=== PATIENT | female | born 1990 | race Hispanic/Latino ===

== ENCOUNTER 2017-08-21 21:41 | Emergency (ER) | payer OTHER ==
--- NOTE | 2017-08-21 23:46 | ER ---
Nurse's Notes [facility] Name: Anila Hines Age: 27 yrs Sex: Female : 1990 Arrival Date: 08/21/2017 Time: 21:43 Bed 17 Private MD: Diagnosis: Contusion of left elbow Presentation: 08/21 21:55 Presenting complaint: Patient states: I was at work and stripped over a box and hit my tl1 left elbow on a metal shelf and it is swollen. Transition of care: patient was not received from another setting of care. Onset of symptoms was August 21, 2017. Care prior to arrival: None. 21:55 Method Of Arrival: Ambulatory tl1 21:55 Acuity: DALJIT 4 tl1 Triage Assessment: 08/22 00:21 Pain: Pain currently is 0 out of 10 on a pain scale. 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 - Social history:: Smoking status: Patient/guardian denies using tobacco, never smoked. - Family history:: not pertinent. Screenin:51 Abuse screen: Denies threats or abuse. Denies injuries from another. Nutritional bp screening: No deficits noted. Tuberculosis screening: No symptoms or risk factors identified. Fall Risk Fall in past 12 months (25 points). No secondary diagnosis (0 pts). No IV (0 pts). Ambulatory Aid- None/Bed Rest/Nurse Assist (0 pts). Gait- Normal/Bed Rest/Wheelchair (0 pts) Mental Status- Oriented to own ability (0 pts). Total Merino Fall Scale indicates Low Risk Score (25-44 pts). Fall prevention measures have been instituted. Side Rails Up X 2 Family Present and informed to notify staff if they need to leave bedside As available Patient and Family Educated on Fall Prevention Program and strategies. Assessment: 22:49 General: Appears in no apparent distress. comfortable, obese. General: Behavior is bp calm, cooperative, appropriate for age. Pain: Complains of pain in left elbow. Neuro: Level of Consciousness is awake, alert, obeys commands, Oriented to person, place, time, situation, Appropriate for age. Cardiovascular: No deficits noted. Respiratory: No deficits noted. GI: No signs and/or symptoms were reported involving the gastrointestinal system. : No signs and/or symptoms were reported regarding the genitourinary system. EENT: No signs and/or symptoms were reported regarding the EENT system. Derm: No deficits noted. Musculoskeletal: Circulation, motion, and sensation intact. Range of motion: intact in all extremities. 08/22 00:14 Reassessment: PT D/C HOME WITH FAMILY, DX WITH ELBOW CONTUSION AND OLECRANON BURSITIS. bp Vital Signs: 08/21 21:57 BP 157 / 105; Pulse 79; Resp 16; Temp 99.4; Pulse Ox 100% ; Weight 104.33 kg; Height 5 tl1 ft. 5 in. (165.10 cm); Pain 4/10; 08/22 00:00 BP 161 / 95; Pulse 75; Resp 16; Pulse Ox 100% ; bp 08/21 21:57 Body Mass Index 38.27 (104.33 kg, 165.10 cm) tl1 ED Course: 08/21 21:43 Patient arrived in ED. es 21:56 Triage completed. tl1 21:59 Arm band placed on right wrist. tl1 22:46 X-ray completed. Portable x-ray completed in exam room. Patient tolerated procedure kc2 well. 22:48 Garland Nagy, RN is Primary Nurse. bp 22:49 Elbow Left 3 View XRAY Sent. bp 22:51 Patient has correct armband on for positive identification. Bed in low position. Call bp light in reach. Side rails up X2. Adult w/ patient. 23:02 Meet Pizano MD is Attending Physician. ilnda 23:45 Jalen Peña MD is Referral Physician. linda 08/22 00:00 Patient did not have IV access during this emergency room visit. bp 00:21 No provider procedures requiring assistance completed. bp Administered Medications: 08/21 23:55 Drug: Motrin 600 mg Route: PO; tl1 23:59 Follow up: Response: No adverse reaction; Medication administered at discharge. bp 23:56 Drug: [place] (7.5 mg-325 mg) 1 tabs Route: PO; tl1 23:59 Follow up: Response: Medication administered at discharge. bp 23:59 Drug: Neosporin Ointment 1 application Route: Topical; Site: affected area; bp Outcome: 23:46 Discharge ordered by MD. mckeon 08/22 00:00 Discharged to home ambulatory, with family. bp Condition: stable Discharge instructions given to patient, family, Instructed on discharge instructions, follow up and referral plans. medication usage. 00:29 Patient left the ED. bp Signatures: Meet Pizano MD MD cha Salyer, Edna es Lasagna, Tonya, RN RN tl1 Andie Gregg kc2 Garland Nagy, RN RN bp
--- NOTE | 2017-08-21 23:46 | EDPHYS ---
Physician Documentation [facility] Name: Anila Hines Age: 27 yrs Sex: Female : 1990 Arrival Date: 08/21/2017 Time: 21:43 Bed 17 Private MD: ED Physician Meet Pizano HPI: 08/21 23:43 This 27 yrs old Female presents to ER via Ambulatory with complaints of Elbow linda Injury. 23:43 The patient or guardian complains of decreased range of motion, pain, swelling, linda tenderness. The complaints affect the left elbow. Context: The problem was sustained at work. Onset: The symptoms/episode began/occurred just prior to arrival. Treatment prior to arrival includes: no previous treatment. Modifying factors: The symptoms are alleviated by remaining still, the symptoms are aggravated by movement, bending arm. Associated signs and symptoms: The patient has no apparent associated signs or symptoms. The patient has not experienced similar symptoms in the past. 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 - Social history:: Smoking status: Patient/guardian denies using tobacco, never smoked. - Family history:: not pertinent. ROS: 23:43 Constitutional: Negative for fever, chills, and weight loss, Eyes: Negative for injury, linda pain, redness, and discharge, ENT: Negative for injury, pain, and discharge, Neck: Negative for injury, pain, and swelling, Cardiovascular: Negative for chest pain, palpitations, and edema, Respiratory: Negative for shortness of breath, cough, wheezing, and pleuritic chest pain, Abdomen/GI: Negative for abdominal pain, nausea, vomiting, diarrhea, and constipation, Back: Negative for injury and pain, : Negative for injury, bleeding, discharge, and swelling, Skin: Negative for injury, rash, and discoloration, Neuro: Negative for headache, weakness, numbness, tingling, and seizure, Psych: Negative for depression, anxiety, suicide ideation, homicidal ideation, and hallucinations, Allergy/Immunology: Negative for hives, rash, and allergies, Endocrine: Negative for neck swelling, polydipsia, polyuria, polyphagia, and marked weight changes, Hematologic/Lymphatic: Negative for swollen nodes, abnormal bleeding, and unusual bruising. 23:43 MS/extremity: Positive for decreased range of motion, pain, tenderness, of the left elbow. Exam: 23:43 Constitutional: This is a well developed, well nourished patient who is awake, alert, linda and in no acute distress. Head/Face: Normocephalic, atraumatic. Eyes: Pupils equal round and reactive to light, extra-ocular motions intact. Lids and lashes normal. Conjunctiva and sclera are non-icteric and not injected. Cornea within normal limits. Periorbital areas with no swelling, redness, or edema. ENT: Nares patent. No nasal discharge, no septal abnormalities noted. Tympanic membranes are normal and external auditory canals are clear. Oropharynx with no redness, swelling, or masses, exudates, or evidence of obstruction, uvula midline. Mucous membranes moist. Neck: Trachea midline, no thyromegaly or masses palpated, and no cervical lymphadenopathy. Supple, full range of motion without nuchal rigidity, or vertebral point tenderness. No Meningismus. Chest/axilla: Normal chest wall appearance and motion. Nontender with no deformity. No lesions are appreciated. Cardiovascular: Regular rate and rhythm with a normal S1 and S2. No gallops, murmurs, or rubs. Normal PMI, no JVD. No pulse deficits. Respiratory: Lungs have equal breath sounds bilaterally, clear to auscultation and percussion. No rales, rhonchi or wheezes noted. No increased work of breathing, no retractions or nasal flaring. Abdomen/GI: Soft, non-tender, with normal bowel sounds. No distension or tympany. No guarding or rebound. No evidence of tenderness throughout. Back: No spinal tenderness. No costovertebral tenderness. Full range of motion. Skin: Warm, dry with normal turgor. Normal color with no rashes, no lesions, and no evidence of cellulitis. Neuro: Awake and alert, GCS 15, oriented to person, place, time, and situation. Cranial nerves II-XII grossly intact. Motor strength 5/5 in all extremities. Sensory grossly intact. Cerebellar exam normal. Normal gait. Psych: Awake, alert, with orientation to person, place and time. Behavior, mood, and affect are within normal limits. 23:43 Musculoskeletal/extremity: ROM: full active range of motion, full passive range of motion, Circulation is intact in all extremities. Sensation intact. Compartment Syndrome exam of affected extremity: is normal. DVT Exam: negative Homans' sign noted on exam, no appreciated bluish discoloration, no erythema, no increased warmth, pain, swelling, tenderness. Vital Signs: 21:57 BP 157 / 105; Pulse 79; Resp 16; Temp 99.4; Pulse Ox 100% ; Weight 104.33 kg; Height 5 tl1 ft. 5 in. (165.10 cm); Pain 09/11; 08/22 00:00 BP 161 / 95; Pulse 75; Resp 16; Pulse Ox 100% ; bp 08/21 21:57 Body Mass Index 38.27 (104.33 kg, 165.10 cm) tl1 MDM: 08/21 23:02 Patient medically screened. [facility] 23:45 Data reviewed: vital signs, nurses notes, lab test result(s), radiologic studies, plain linda films. 08/22 00:02 Order name: Urine Dipstick--Ancillary (enter results) [facility] 08/22 00:02 Order name: Urine --Ancillary (enter results) em 08/21 22:00 Order name: Elbow Left 3 View XRAY tl1 08/22 00:10 Order name: Urine --Ancillary [facility] 08/22 00:10 Order name: Urine Dipstick-Ancillary [facility] 08/21 23:43 Order name: Urine Dipstick-Ancillary (obtain specimen); Complete Time: 23:59 [facility] 08/21 23:43 Order name: Urine Test (obtain specimen); Complete Time: 23:59 [facility] 08/21 23:43 Order name: Ice pack; Complete Time: 23:53 [facility] 08/21 23:43 Order name: Sling; Complete Time: 23:53 [facility] Administered Medications: 23:55 Drug: Motrin 600 mg Route: PO; tl1 23:59 Follow up: Response: No adverse reaction; Medication administered at discharge. bp 23:56 Drug: [place] (7.5 mg-325 mg) 1 tabs Route: PO; tl1 23:59 Follow up: Response: Medication administered at discharge. bp 23:59 Drug: Neosporin Ointment 1 application Route: Topical; Site: affected area; bp Disposition: 08/21/17 23:46 Discharged to Home. Impression: Contusion of left elbow. - Condition is Stable. - Discharge Instructions: Elbow Contusion, Olecranon Bursitis, Elbow Contusion, [id number]. - Prescriptions for Ibuprofen 600 mg Oral Tablet - take 1 tablet by ORAL route every 8 hours As needed take with food; 21 tablet. Tylenol- Codeine #3 300-30 mg Oral Tablet - take 2 tablets by ORAL route every 6 hours As needed; 26 tablet. - Medication Reconciliation Form, Thank You Letter, Antibiotic Education, Prescription Opioid Use, Work release form form. - Follow up: Jalen Peña MD; When: 2 - 3 days; Reason: Recheck today's complaints, Re-evaluation by your physician. - Problem is new. - Symptoms have improved. Signatures: Dispatcher [employer] EDMeet Perez MD MD cha Lasagna, Tonya, RN RN tl1 Garland Nagy RN RN bp
[2017-08-22 00:10] LABS: Urine Blood TRACE (NEG); Urine Glucose NEGATIVE (NEG); Urine Protein NEGATIVE (NEG); Urine Specific Gravity 1.025 (1.005-1.030)
[2017-08-22] MEDS ORDERED: HYDROCODONE/APAP 7.5/325 MG TAB ONE (00:11)
[2017-08-22] MEDS ORDERED: IBUPROFEN 200 MG TAB PO ONE (00:11)
[2017-08-22 00:51] VITALS: TEMP 99.4; O2SAT 100
[2017-08-22 00:53] VITALS: BP 161/95
--- NOTE | 2017-08-22 09:34 | RAD REPORT ---
EXAM DESCRIPTION: RAD - Elbow Left 3 View - 08/21/2017 10:48 pm CLINICAL HISTORY: Left elbow pain status post trauma FINDINGS: No fracture or dislocation is seen.
== END 2017-08-22 00:29 | disposition home or self-care (01) ==
LOC: ER 21:41
DX: S50.02XA Contusion of left elbow, initial encounter (principal); X58.XXXA Exposure to other specified factors, initial encounter; Y93.9 Activity, unspecified; Y92.89 Other specified places as the place of occurrence of the external cause; Y99.0 Civilian activity done for income or pay; Z91.010 Allergy to peanuts
CPT/HCPCS: 81003; 81025; 99283

== ENCOUNTER 2019-04-08 16:47 | Observation (INO) | payer OTHER ==
[2019-04-08 19:00] LABS: Urine Blood 2+ (NEG); Urine Glucose NEGATIVE (NEG); Urine Protein NEGATIVE (NEG); Urine Specific Gravity 1.025 (1.005-1.030)
[2019-04-08 19:29] LABS: Urine Bacteria 20-50 /HPF (<20); Urine Culture Reflex Order NOT NEEDED; Urine Mucus SLIGHT /HPF (NONE SEEN)
--- NOTE | 2019-04-08 19:37 | RAD REPORT ---
EXAM DESCRIPTION: CT - Stone Protocol - 04/08/2019 7:14 pm CLINICAL HISTORY: Lower quadrant pain COMPARISON: None. TECHNIQUE: Axial 5 mm thick images were obtained without oral or IV contrast. The jbxow-dn-coat span s the entirety of the system including uppermost abdomen and lung bases. All CT scans are performed using dose optimization technique as appropriate and may include automated exposure control or mA/KV adjustment according to patient size. FINDINGS: No hydronephrosis is present and no obstructing ureteral calculi. No suspicious renal mass es. Isodense masses and pyelonephritis are not excluded on a stone protocol CT scan. No urinary bladd er suspicious finding. No significant adrenal finding. Uterus and ovaries show no suspicious findings . Imaged portions of the liver, spleen and pancreas show no suspicious findings on non-contrast imaging . No gallbladder or biliary tree abnormality identified. The appendix is abnormal. The appendix is 13 mm in diameter with stranding in the periappendiceal fat . Several small reactive lymph nodes are seen in the right lower quadrant. The appendix is partially retrocecal. No abscess or free air. No hernia, mass or bulky lymphadenopathy noted. No free air, free fluid or pneumatosis. No significant bony abnormality. IMPRESSION: Acute appendicitis. The appendix is partially retrocecal in position. Several small reactive lymph nodes are present in the right lower quadrant. No abscess or other compl icating factor. No acute finding. Isodense masses and pyelonephritis are not excluded.
[2019-04-08] MEDS ORDERED: METRONIDAZOLE 500mg IVPB 0 MG/0 ML BAG IV ONE (19:50)
[2019-04-08] MEDS ORDERED: CEFTRIAXONE/SWI 1gm 1 GM/10 ML SYR ONE (19:50)
[2019-04-08] MEDS ORDERED: NA CHLORIDE 0.9% 1,000 ML ONE (19:50)
[2019-04-08] MEDS ORDERED: METRONIDAZOLE 500mg IVPB 500 MG/100 ML BAG IV ONE (19:51)
[2019-04-08 20:21] LABS: Absolute Lymphocytes (CBC) 2.4 K/uL (0.7-4.9); Basophils % 0.5 % (0-1.3); Hematocrit 37.5 % (36.0-45.0); Lymphocytes % 27.8 % (15.3-44.8); MPV 7.1 fL (7.6-11.3); RBC Red Blood Cell Count 4.38 M/uL (3.86-4.86)
[2019-04-08 20:24] LABS: BUN Blood Urea Nitrogen 10 mg/dL (7-18); Bicarbonate 30 mmol/L (21-32); Glucose Level 91 mg/dL (74-106); Sodium Level 140 mmol/L (136-145)
--- NOTE | 2019-04-08 21:21 | EDPHYS ---
Physician Documentation [facility] Name: Anila Hines Age: 28 yrs Sex: Female : 1990 Arrival Date: 04/08/2019 Time: 16:55 Bed 26 Private MD: ED Physician Marlon Womack HPI: 04/08 19:57 This 28 yrs old Female presents to ER via Ambulatory with complaints of snw Abdominal Pain. 19:57 The patient presents with abdominal pain right lower quadrant. Onset: The snw symptoms/episode began/occurred suddenly, 2 day(s) ago, and became persistent. The symptoms do not radiate. Associated signs and symptoms: none. The symptoms are described as steady. Severity of pain: At its worst the pain was moderate. The patient has not experienced similar symptoms in the past. [facility]. 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 - Social history:: Smoking status: Patient/guardian denies using tobacco. - Ebola Screening: : No symptoms or risks identified at this time. ROS: 19:58 Constitutional: Negative for fever, chills, and weight loss, Eyes: Negative for injury, snw pain, redness, and discharge, ENT: Negative for injury, pain, and discharge, Neck: Negative for injury, pain, and swelling, Cardiovascular: Negative for chest pain, palpitations, and edema, Respiratory: Negative for shortness of breath, cough, wheezing, and pleuritic chest pain, Back: Negative for injury and pain, : Negative for injury, bleeding, discharge, and swelling, MS/Extremity: Negative for injury and deformity, Skin: Negative for injury, rash, and discoloration, Neuro: Negative for headache, weakness, numbness, tingling, and seizure, Psych: Negative for depression, anxiety, suicide ideation, homicidal ideation, and hallucinations. 19:58 Abdomen/GI: Positive for abdominal pain, of the right lower quadrant. Exam: 19:59 Constitutional: This is a well developed, well nourished patient who is awake, alert, snw and in no acute distress. Head/Face: Normocephalic, atraumatic. Eyes: Pupils equal round and reactive to light, extra-ocular motions intact. Lids and lashes normal. Conjunctiva and sclera are non-icteric and not injected. Cornea within normal limits. Periorbital areas with no swelling, redness, or edema. ENT: Nares patent. No nasal discharge, no septal abnormalities noted. Tympanic membranes are normal and external auditory canals are clear. Oropharynx with no redness, swelling, or masses, exudates, or evidence of obstruction, uvula midline. Mucous membranes moist. Neck: Trachea midline, no thyromegaly or masses palpated, and no cervical lymphadenopathy. Supple, full range of motion without nuchal rigidity, or vertebral point tenderness. No Meningismus. Chest/axilla: Normal chest wall appearance and motion. Nontender with no deformity. No lesions are appreciated. Cardiovascular: Regular rate and rhythm with a normal S1 and S2. No gallops, murmurs, or rubs. Normal PMI, no JVD. No pulse deficits. Respiratory: Lungs have equal breath sounds bilaterally, clear to auscultation and percussion. No rales, rhonchi or wheezes noted. No increased work of breathing, no retractions or nasal flaring. Back: No spinal tenderness. No costovertebral tenderness. Full range of motion. Skin: Warm, dry with normal turgor. Normal color with no rashes, no lesions, and no evidence of cellulitis. MS/ Extremity: Pulses equal, no cyanosis. Neurovascular intact. Full, normal range of motion. Neuro: Awake and alert, GCS 15, oriented to person, place, time, and situation. Cranial nerves II-XII grossly intact. Motor strength 5/5 in all extremities. Sensory grossly intact. Cerebellar exam normal. Normal gait. Psych: Awake, alert, with orientation to person, place and time. Behavior, mood, and affect are within normal limits. 19:59 Abdomen/GI: Inspection: abdomen appears normal, Bowel sounds: normal, Palpation: moderate abdominal tenderness, in the right lower quadrant, Indicators: McBurney's point is tender. Vital Signs: 17:06 BP 168 / 105; Pulse 84; Resp 20; Temp 98.7; Pulse Ox 100% on R/A; Weight 107.05 kg; hb Height 5 ft. 5 in. (165.10 cm); Pain 7/10; 20:52 BP 155 / 97; Pulse 86; Resp 18; Pulse Ox 100% on R/A; mg2 21:36 BP 136 / 88; Pulse 81; Resp 17; Temp 98.4; Pulse Ox 100% on R/A; rv 17:06 Body Mass Index 39.27 (107.05 kg, 165.10 cm) hb MDM: 19:10 Patient medically screened. snw 20:57 Data reviewed: vital signs, nurses notes. Data interpreted: Pulse oximetry: on room air snw is 100 %. Interpretation: normal. Counseling: I had a detailed discussion with the patient and/or guardian regarding: the historical points, exam findings, and any diagnostic results supporting the discharge/admit diagnosis, lab results, radiology results, the need for further work-up and treatment in the hospital. Physician consultation: Rakesh Simpson MD was called at 20:57, was contacted at 20:57, regarding admission, Dr. Womack gave report to Dr. Simpson, 2100 [employer] Furn[employer] Manager notified of need for OR crew/surgery at 2100. 04/08 16:58 Order name: Urine Culture snw 04/08 16:58 Order name: Urine Microscopic Only; Complete Time: 19:41 snw 04/08 18:57 Order name: Urine Dipstick--Ancillary (enter results); Complete Time: 19:10 bd 04/08 18:57 Order name: Urine --Ancillary (enter results); Complete Time: 19:10 bd 04/08 19:46 Order name: CBC with Diff; Complete Time: 20:29 snw 04/08 19:46 Order name: Chem 7; Complete Time: 20:26 snw 04/08 16:58 Order name: Urine Test (obtain specimen); Complete Time: 18:52 snw 04/08 16:58 Order name: Urine Dipstick-Ancillary (obtain specimen); Complete Time: 18:52 snw 04/08 18:58 Order name: CT Stone Protocol; Complete Time: 19:44 snw 04/08 19:47 Order name: NPO; Complete Time: 20:04 snw Administered Medications: 20:10 Drug: Rocephin - (cefTRIAXone) 1 grams Route: IVPB; Infused Over: 30 mins; Site: right rv antecubital; 20:17 Follow up: IV Status: Completed infusion rv 20:10 Drug: Flagyl 500 mg Volume: 100 ml; Route: IVPB; Rate: 200 ml/hr; Infused Over: 30 rv mins; Site: right antecubital; 21:39 Follow up: IV Status: Completed infusion rv 20:10 Drug: NS 0.9% 1000 ml Route: IV; Rate: 1 bolus; Site: right antecubital; rv 21:39 Follow up: IV Status: Completed infusion rv Disposition: 21:52 Co-signature as Attending Physician, Marlon Womack MD I agree with the assessment and wa plan of care. Disposition: 04/08/19 21:20 Hospitalization ordered by Rakesh Simpson for Observation. Preliminary diagnosis is Acute appendicitis. - Bed requested for Operating Room. - Status is Observation. rv - Condition is Stable. - Problem is new. - Symptoms are unchanged. UTI on Admission? No Signatures: Dispatcher [employer] EDMS Brissa Lemons, PHONOGRAPH NEEDLE TIP MAKER-C PHONOGRAPH NEEDLE TIP MAKER-Csnw Mounika Loya, RN MATT Marlon Womack MD MD nc Piotr Alvarado RN RN rv Corrections: (The following items were deleted from the chart) 21:39 21:20 Hospitalization Ordered by Rakesh Simpson MD for Observation. Preliminary rv diagnosis is Acute appendicitis. Bed requested for Operating Room. Status is Observation. Condition is Stable. Problem is new. Symptoms are unchanged. UTI on Admission? No. snw
--- NOTE | 2019-04-08 21:21 | ER ---
Nurse's Notes [facility] Name: Anila Hines Age: 28 yrs Sex: Female : 1990 Arrival Date: 04/08/2019 Time: 16:55 Bed 26 Private MD: Diagnosis: Acute appendicitis Presentation: 04/08 17:05 Presenting complaint: RLQ pain x 2 days. Denies N/V/D/fever. Transition of care: hb patient was not received from another setting of care. Onset of symptoms was April 07, 2019. Risk Assessment: Do you want to hurt yourself or someone else? Patient reports no desire to harm self or others. Care prior to arrival: None. 17:05 Method Of Arrival: Ambulatory hb 17:05 Acuity: DALJIT 3 hb 18:45 Initial Sepsis Screen: Does the patient meet any 2 criteria? No. Patient's initial rv sepsis screen is negative. Does the patient have a suspected source of infection? No. Patient's initial sepsis screen is negative. 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 - Social history:: Smoking status: Patient/guardian denies using tobacco. - Ebola Screening: : No symptoms or risks identified at this time. Screenin:45 Abuse screen: Denies threats or abuse. Denies injuries from another. Nutritional rv screening: No deficits noted. Tuberculosis screening: No symptoms or risk factors identified. Fall Risk None identified. Assessment: 18:44 General: Appears in no apparent distress. comfortable, Behavior is calm, cooperative. rv Pain: Complains of pain in right upper quadrant. Neuro: Level of Consciousness is awake, alert, obeys commands, Oriented to person, place, time, situation. Cardiovascular: Patient's skin is warm and dry. Respiratory: Airway is patent. GI: Bowel sounds present X 4 quads. Abd is soft and non tender X 4 quads. : No signs and/or symptoms were reported regarding the genitourinary system. EENT: No signs and/or symptoms were reported regarding the EENT system. Derm: Skin is intact. Musculoskeletal: No signs and/or symptoms reported regarding the musculoskeletal system. 20:53 Reassessment: Patient appears in no apparent distress at this time. Patient and/or mg2 family updated on plan of care and expected duration. Pain level reassessed. Patient is alert, oriented x 3, equal unlabored respirations, skin warm/dry/pink. 21:35 Reassessment: Patient appears in no apparent distress at this time. Patient and/or rv family updated on plan of care and expected duration. Pain level reassessed. Patient is alert, oriented x 3, equal unlabored respirations, skin warm/dry/pink. Vital Signs: 17:06 BP 168 / 105; Pulse 84; Resp 20; Temp 98.7; Pulse Ox 100% on R/A; Weight 107.05 kg; hb Height 5 ft. 5 in. (165.10 cm); Pain 7/10; 20:52 BP 155 / 97; Pulse 86; Resp 18; Pulse Ox 100% on R/A; mg2 21:36 BP 136 / 88; Pulse 81; Resp 17; Temp 98.4; Pulse Ox 100% on R/A; rv 17:06 Body Mass Index 39.27 (107.05 kg, 165.10 cm) hb ED Course: 16:55 Patient arrived in ED. mr 17:06 Triage completed. hb 17:07 Arm band placed on. hb 18:31 Piotr Alvarado, MATT is Primary Nurse. rv 18:45 Patient has correct armband on for positive identification. Bed in low position. Call rv light in reach. Side rails up X 1. Pulse ox on. NIBP on. 18:52 Urine Culture Sent. lt1 18:52 Urine Microscopic Only Sent. lt1 18:57 Brissa Lemons FNP-C is PHCP. snw 18:57 Marlon Womack MD is Attending Physician. snw 19:14 CT Stone Protocol In Process Unspecified. EDMS 20:53 Inserted saline lock: 20 gauge in right antecubital area, using aseptic technique. mg2 Blood collected. by MATT Ervin. 20:53 No provider procedures requiring assistance completed. mg2 21:19 Rakesh Simpson MD is Hospitalizing Provider. snw 21:38 Patient admitted, IV remains in place. rv Administered Medications: 20:10 Drug: Rocephin - (cefTRIAXone) 1 grams Route: IVPB; Infused Over: 30 mins; Site: right rv antecubital; 20:17 Follow up: IV Status: Completed infusion rv 20:10 Drug: Flagyl 500 mg Volume: 100 ml; Route: IVPB; Rate: 200 ml/hr; Infused Over: 30 rv mins; Site: right antecubital; 21:39 Follow up: IV Status: Completed infusion rv 20:10 Drug: NS 0.9% 1000 ml Route: IV; Rate: 1 bolus; Site: right antecubital; rv 21:39 Follow up: IV Status: Completed infusion rv Outcome: 21:20 Decision to Hospitalize by Provider. snw 21:38 Admitted to OR accompanied by nurse, via stretcher, with chart, Report called to rv ana brennan 21:38 Condition: good 21:38 Instructed on the need for admit. 21:39 Patient left the ED. rv Signatures: Dispatcher [employer] EDMS Brissa Lemons, BUCK[employer] SENIOR PRODUCT MANAGER-Kathy Kowalski Heather, RN Steven Patino, RN MATT [facility] [place] Piotr Alvarado RN RN Citlalli Carrillo lt1
[2019-04-08] MEDS ORDERED: Ringers Lactate 1,000 ML IV ONE (21:39)
[2019-04-08] MEDS ORDERED: ROCURONIUM 50 MG/5 ML VIAL IV ONE ×2 (22:00→22:01)
[2019-04-08] MEDS ORDERED: PROPOFOL 200 MG/20 ML VIAL IV ONE (22:00)
[2019-04-08] MEDS ORDERED: LIDOCAINE 2% MPF 5 ML VIAL ONE (22:01)
[2019-04-08] MEDS ORDERED: FENTANYL CITR 100 MCG/2 ML ONE (22:01)
--- NOTE | 2019-04-08 22:28 | P.BOP ---
Preoperative diagnosis: acute appendicitis Postoperative diagnosis: same, retrocecal appendix Primary procedure: Laparoscopic appendectomy, cecum mobilization, LISE Estimated blood loss: <10cc Specimen: marlene Findings: retrocecal appendix with RLQ adhesions Anesthesia: General Complications: None Transferred to: Recovery Room Condition: Good
[2019-04-08] MEDS ORDERED: ONDANSETRON 4 MG/2 ML VIAL ONE (22:36)
[2019-04-08] MEDS ORDERED: dexAMETHasone 10 MG/ML VIAL ONE (22:36)
[2019-04-08] MEDS ORDERED: KETOROLAC 30 MG/ML INJ ONE (22:36)
[2019-04-08] MEDS ORDERED: GLYCOPYRROLATE 0.2 MG/ML SYR ONE ×2 (22:49→23:29)
[2019-04-08] MEDS ORDERED: NEOSTIGMINE 1 MG/ML -5 ML ONE (22:49)
[2019-04-08] MEDS ORDERED: LABETALOL 20 MG/4ML SYRINGE IV ONE (23:08)
[2019-04-09] MEDS: HYDROMORPHONE HCL 1 MG/ML INJ ONE ×2 (00:01→00:06)
[2019-04-09] MEDS ORDERED: MORPHINE 2 MG/ML SYR IV PRN (00:09)
[2019-04-09] MEDS ORDERED: HYDROCODONE/APAP 5/325 MG TAB PO PRN (00:09)
[2019-04-09] MEDS ORDERED: ONDANSETRON 4 MG/2 ML VIAL IV PRN (00:09)
[2019-04-09] MEDS ORDERED: SODIUM CHLORIDE 0.9% 10ML INJ IV PRN (00:09)
[2019-04-09 00:14] VITALS: O2SAT 97
[2019-04-09] MEDS: NA CHLORIDE 0.9% 1,000 ML IV SCH ×2 (00:52→10:09)
[2019-04-09] MEDS: METRONIDAZOLE 500mg IVPB 500 MG/100 ML BAG IV SCH ×3 (00:52→12:39)
[2019-04-09] MEDS ORDERED: CEFOXITIN SODIUM 1 GM/VIAL ONE ×2 (01:29→05:42)
[2019-04-09] MEDS ORDERED: NA CHLORIDE 0.9% 100 ML ONE ×2 (01:34→05:46)
[2019-04-09] MEDS: CEFOXITIN 1 GM in NA CHLORIDE 0.9% 100 ML IVPB SCH ×2 (01:40→05:52)
--- NOTE | 2019-04-09 04:26 | HP ---
Date of Admission: 04/09/2019 Reason For Service: Acute appendicitis, acute abdominal pain. History Of Present Illness: This is the case of a 28-year-old patient, she has abdominal pain, it is about 2 days of duration. Few hours ago it got worse. She came to the ER diagnosed with acute appe ndicitis. Surgical evaluation was requested. She denies any dysuria, hematuria, hematochezia, or me kurt. Denies any recent traveling out of the country. Denies any family member sick at home. Past Medical History: None. Allergies: PEANUTS. Social History: She does not smoke, she does drink alcohol. Family History: Noncontributory. Past Surgical History: None. Last Menstrual Period: 04/04/2019. Review of Systems: Ten points was unremarkable. Physical Examination: General: The patient is awake and alert. HEENT: Pupils are equal and reactive, anicteric. Neck: Supple. Chest: Clear. Heart: S1, S2. Abdomen: Right lower quadrant tenderness with Rovsing sign and psoas sign positive. Breasts: Deferred. Pelvic: Deferred. Rectal: Deferred. Extremities: Good capillary refill. Neurologic: Cranial nerves 2 through 12 grossly within normal limits. Laboratory Data: Blood work shows WBC count of 8.6 with hemoglobin of 12.9 and platelets of 319, pot assium is 4.0, BUN is 10, creatinine is 0.7. UA shows blood 2+, bacteria 20-50. CAT scan of abdomen and pelvis interpreted by Dr. Schroeder as acute appendicitis. The appendix was partially retrocecal, some reactive lymph nodes present with periappendiceal fat stranding. Assessment And Plan: This is a 28-year-old patient with acute appendicitis, laparoscopic possible op en appendectomy. Fully explained to the patient, which include, but are not limited to infection, bl eeding, damage to adjacent structures, anesthesia complications, negative appendix, NH, and even deat h. She also understands this may not relieve the symptoms. She might need more than one surgical in tervention. She understood, signed the consent. CARL Voice ID: [id number]
[2019-04-09 05:04] LABS: Absolute Lymphocytes (CBC) 0.6 K/uL (0.7-4.9); Basophils % 0.1 % (0-1.3); Hematocrit 37.1 % (36.0-45.0); Lymphocytes % 5.5 % (15.3-44.8); RBC Red Blood Cell Count 4.28 M/uL (3.86-4.86)
--- NOTE | 2019-04-09 05:11 | OP ---
Date of Procedure: 04/08/2019 Surgeon: Rakesh Simpson MD Preoperative Diagnoses: Acute appendicitis, peritonitis. Postoperative Diagnoses: Acute appendicitis, peritonitis plus retrocecal appendix. Procedure Performed: Laparoscopic appendectomy, cecum mobilization, lysis of adhesions. Estimated Blood Loss: Less than 10 mL. Specimen: Appendix. Anesthesia: General plus local. Indications: This is the case of a 28-year-old patient, who comes to us with acute abdominal pain, d iagnosed with acute appendicitis, possible retrocecal. Benefits, alternatives, and risks of laparosc opic, possible open appendectomy were fully explained to the patient, which include, but not limited to infection, bleeding, damage to adjacent structures, anesthesia complications, abscess, FL, and shaq n . She also understands this may not relieve any symptoms. She might need more than one surgi sage intervention. She understood, signed a consent. Description Of Procedure: The patient was brought to the operating room, placed in the supine positi on. Anesthesia was done without complication. Abdominal area was prepped and draped in a sterile fa shion. Marcaine 0.5% was injected for local anesthetic after a time-out was called. Incision was ca rried down to fascia, which was open under direct vision. Peritoneum was encountered, opened under d irect vision. Vicryl #1 placed inside the fascia. Dara trocar was carefully introduced. No bleed ing was obtained. I placed 2 more trocars, 5 mm each one of them in the suprapubic and left lower qu adrant under direct visualization. We visualized the area of the appendix, retrocecal, a lot of adhe sions in that region, although I do not see any extraluminal masses. I opened the ligature instrumen t to proceed to do lysis of adhesions on the right side. This took probably half of the time of the surgery just to remove the adhesions from the right lower quadrant to the point that we also have to do cecal mobilization to be able to expose the appendix, which is riding just below the white lines o f Toldt. Once we did lysis of adhesions, then we mobilized the cecum, we were able to identify the a ppendix. We found the base of the appendix. I opened a window there and transected that with an End o MAIA 45 mm, 3.5 in the mesoappendix with an Endo MAIA 45 mm 2.5. Further hemostasis was obtained wit h the help of hemoclips. Appendix was removed from abdominal cavity using an EndoCatch through the u mbilical incision. The area was irrigated with several liters of fluid. We did that until it is com pletely clean. No bleeding. No bowel leak. At that moment, I proceeded to remove the trocars under direct vision. Deflated the pneumoperitoneum. Closed the fascia with #1 Vicryl. Irrigated subcuta neous tissue, closed that with 3-0 chromic and skin with rodney. Sponge count and instrument counts were correct. The patient tolerated the procedure well. The patient was sent to the recovery room in stable condition. The patient will be admitted to the floor for observation and antibiotics and p ain control. RENALDO/KOKI Voice ID: [id number] Report ID: [id number]
[2019-04-09 05:13] LABS: BUN Blood Urea Nitrogen 8 mg/dL (7-18); Bicarbonate 25 mmol/L (21-32); Glucose Level 151 mg/dL (74-106); Potassium 3.8 mmol/L (3.5-5.1); Sodium Level 138 mmol/L (136-145)
[2019-04-09 05:55] VITALS: BMI 38.9
[2019-04-09 07:07] LABS: Platelet Estimate ADEQ
[2019-04-09 07:08] LABS: Blood Morphology Comment NOT SEEN (NOT SEEN)
[2019-04-09] MEDS ORDERED: PANTOPRAZOLE 40 MG INJ IVP SCH (09:00)
[2019-04-09] MEDS ORDERED: CEFOXITIN/SWI 1gm 1 GM/10 ML SYR IV SCH (12:00)
[2019-04-09 13:55] VITALS: BP 118/57; TEMP 98.6
--- NOTE | 2019-04-09 14:48 | P.DS ---
Admission Date: 04/09/19 Discharge Date: 04/09/19 Disposition: ROUTINE DISCHARGE Discharge Condition: GOOD Vital Signs/Physical Exam: Temp Pulse Resp BP Pulse Ox 98.6 F 92 H 20 118/57 L 97 04/09/19 12:00 04/09/19 12:00 04/09/19 12:00 04/09/19 12:00 04/09/19 12:00 General: Alert, In no apparent distress, Oriented x3, Cooperative HEENT: PERRLA, EOMI Neck: Supple Respiratory: Clear to auscultation bilaterally Cardiovascular: Normal pulses Gastrointestinal: Soft and benign Musculoskeletal: No erythema, No tenderness, No warmth Integumentary: No erythema, No warmth, No cyanosis Neurological: Normal speech Laboratory Data at Discharge: WBC 11.5 K/uL (4.3-10.9) H D 04/09/19 04:49 Hgb 12.2 g/dL (12.0-15.0) 04/09/19 04:49 Hct 37.1 % (36.0-45.0) 04/09/19 04:49 Plt Count 316 K/uL (152-406) 04/09/19 04:49 Sodium 138 mmol/L (136-145) 04/09/19 04:49 Potassium 3.8 mmol/L (3.5-5.1) 04/09/19 04:49 BUN 8 mg/dL (7-18) 04/09/19 04:49 Creatinine 0.65 mg/dL (0.55-1.3) 04/09/19 04:49 Glucose 151 mg/dL (74-106) H 04/09/19 04:49 Home Medications: Amoxicillin/Potassium Clav [Augmentin 875-125 Tablet] 1 each PO BID #12 tablet 04/09/19 Codeine/APAP [Tylenol W/Codeine #3 tab] 1 tab PO Q4HP PRN #20 tab 04/09/19 Norgestimate-Ethinyl Estradiol [Hgt-Nq-Ghfsxlypn Tablet] 1 tab PO DAILY New Medications: Amoxicillin/Potassium Clav [Augmentin 875-125 Tablet] 1 each PO BID #12 tablet Codeine/APAP [Tylenol W/Codeine #3 tab] 1 tab PO Q4HP PRN #20 tab PRN Reason: Pain Patient Discharge Instructions: keep area dry for 24h then may remove outer dressing and shower. Return to work light duty sunday Diet: AHA Activity: No lifting more than 10 lbs Followup: Rakesh Simpson MD [ACTIVE - CAN ADMIT] - 1 Week
== END 2019-04-09 15:52 | disposition home or self-care (01) ==
LOC: ER 16:47 → 2ND 04-09 00:34
PROVIDERS: ADMIT Surgery; ATTEND Surgery
PROC: 0DTJ4ZZ Resection of Appendix, Percutaneous Endoscopic Approach (ICD-10-PCS; principal; 2019-04-08 21:51)
DX: K35.33 Acute appendicitis with perforation, localized peritonitis, and gangrene, with abscess (principal)
CPT/HCPCS: 96365; 87088; 85025 ×2; 87086; 80048 ×2; 36415; 81025; 88304; 76377; 74176; 96375; 99285; 44970; J2704; C9113; J3010; J1100; J1170; J2710; J0696; J7120; J7030 ×2; J0694 ×2; J2405 ×2; G0378 ×2; 81003; 81015